=== PATIENT | female | born 1975 | race Caucasian/White ===

== ENCOUNTER 2018-05-14 18:06 | Emergency (ER) | payer OTHER ==
[~2018-05-14] VITALS: Ht 154.9 cm; Wt 67.1 kg
[2018-05-14] MEDS ORDERED: PROZAC20 MG PO (18:13)
[2018-05-14] MEDS ORDERED: BENADRYL25 MG PO (18:13)
[2018-05-14 18:51] LABS: URINE BILIRUBIN NEGATIVE (Negative); URINE BLOOD NEGATIVE (Negative); URINE CLARITY CLEAR; URINE COLOR YELLOW; URINE GLUCOSE-RANDOM NEGATIVE (Negative); URINE KETONES NEGATIVE (Negative); URINE LEUKOCYTES NEGATIVE (Negative); URINE NITRITE NEGATIVE (Negative); URINE PROTEIN NEGATIVE (Negative); URINE SPECIFIC GRAVITY 1.025 (1.005-1.030); URINE UROBILINOGEN 0.2 E.U./dl (0.2-1.0)
[2018-05-14 19:11] LABS: ABSOLUTE BASOPHILS 0.2 thou/uL (0.0-0.2); ABSOLUTE EOSINOPHILS 0.3 thou/uL (0.0-0.7); ABSOLUTE LYMPHOCYTES 2.9 thou/uL (0.8-5.3); ABSOLUTE MONOCYTES 1.5 thou/uL (0.0-1.2); ABSOLUTE NEUTROPHILS 12.5 thou/uL (1.6-8.1); BASOPHILS 1.1 %; EOSINOPHILS 1.8 %; HEMATOCRIT 38.9 % (37.0-47.0); HEMOGLOBIN 13.4 gm/dL (12.0-15.0); LYMPHOCYTES 16.6 %; MCH 28.9 pg (26.0-34.0); MCHC 34.4 g/dL (28.0-37.0); MCV 84.2 fL (80.0-100.0); MONOCYTES 8.4 %; MPV 9.2 fl. (7.2-11.1); NUCLEATED RBCS 0 /100WBC; PLATELET COUNT* 554 thou/uL (150-400); POLYS 72.1 %; RBC 4.62 mil/uL (4.20-5.00); RDW-CV 13.8 % (10.5-14.5); WBC 17.4 thou/uL (4.0-11.0)
[2018-05-14 19:19] LABS: CALCIUM 9.4 mg/dL (8.5-10.1); CREATININE 0.8 mg/dL (0.6-1.3); POTASSIUM 3.9 mmol/L (3.5-5.1)
[2018-05-14 19:23] LABS: ALBUMIN 4.1 g/dL (3.4-5.0); TOTAL BILIRUBIN 0.5 mg/dL (<0.1-1.0); TOTAL PROTEIN 8.2 g/dL (6.4-8.2)
[2018-05-14] MEDS ORDERED: CARAFATE 1 GM TA1 G1 PO (20:29)
[2018-05-14] MEDS ORDERED: PRILOSEC 20 MG20 MG PO (20:29)
[2018-05-14 20:48] VITALS: BP 100/80
== END 2018-05-14 20:49 | disposition home or self-care (01) ==
LOC: M.ERS 18:06
PROVIDERS: Physician Assistant
DX: R10.13 Epigastric pain (principal); R11.2 Nausea with vomiting, unspecified; D72.829 Elevated white blood cell count, unspecified; Z90.49 Acquired absence of other specified parts of digestive tract

== ENCOUNTER 2018-06-07 09:03 | Emergency (ER) | payer OTHER ==
[~2018-06-07] VITALS: Ht 154.9 cm; Wt 67.1 kg
[~2018-06-07 09:03] MED LIST: BENADRYL25 MG PO; CARAFATE 1 GM TA1 G1 PO; PRILOSEC 20 MG20 MG PO; PROZAC20 MG PO
[2018-06-07 10:52] VITALS: BP 123/67
== END 2018-06-07 10:52 | disposition home or self-care (01) ==
LOC: M.ERS 09:03
DX: R51 Headache (principal); F17.210 Nicotine dependence, cigarettes, uncomplicated; Z90.49 Acquired absence of other specified parts of digestive tract

== ENCOUNTER 2018-08-12 16:44 | Inpatient (IN) | payer OTHER ==
[~2018-08-12] VITALS: Ht 154.9 cm; Wt 73.0 kg
[2018-08-12 17:02] VITALS: BP 127/80
[2018-08-12] MEDS ORDERED: PROZAC10 MG PO (17:04)
[2018-08-12] MEDS ORDERED: TYLENOL EXTRA500 MG PO (17:04)
[2018-08-12] MEDS ORDERED: TRAZODONE HCL50 MG PO (17:04)
[2018-08-12 17:41] LABS: ABSOLUTE BASOPHILS 0.1 thou/uL (0.0-0.2); ABSOLUTE EOSINOPHILS 0.7 thou/uL (0.0-0.7); ABSOLUTE LYMPHOCYTES 2.1 thou/uL (0.8-5.3); ABSOLUTE MONOCYTES 1.3 thou/uL (0.0-1.2); ABSOLUTE NEUTROPHILS 13.4 thou/uL (1.6-8.1); BASOPHILS 0.8 %; EOSINOPHILS 3.8 %; HEMATOCRIT 37.3 % (37.0-47.0); HEMOGLOBIN 12.9 gm/dL (12.0-15.0); LYMPHOCYTES 12.1 %; MCH 29.2 pg (26.0-34.0); MCHC 34.6 g/dL (28.0-37.0); MCV 84.4 fL (80.0-100.0); MONOCYTES 7.5 %; MPV 8.5 fl. (7.2-11.1); NUCLEATED RBCS 0 /100WBC; PLATELET COUNT* 544 thou/uL (150-400); POLYS 75.8 %; RBC 4.42 mil/uL (4.20-5.00); RDW-CV 13.6 % (10.5-14.5); WBC 17.7 thou/uL (4.0-11.0)
[2018-08-12 17:49] LABS: ANION GAP 5 mmol/L (7-16); BUN 13 mg/dL (7-18); CALCIUM 8.3 mg/dL (8.5-10.1); CHLORIDE 102 mmol/L (98-107); CO2 29 mmol/L (21-32); CREATININE 0.5 mg/dL (0.6-1.3); GLUCOSE 101 mg/dL (70-99); POTASSIUM 4.1 mmol/L (3.5-5.1); SODIUM 136 mmol/L (136-145)
[2018-08-12 18:00] LABS: ALBUMIN 3.5 g/dL (3.4-5.0); ALKALINE PHOSPHATASE 76 U/L (46-116); NT-PRO BRAIN NAT PEPTIDE 495 pg/mL (<300); SGOT 55 U/L (15-37); SGPT 102 U/L (30-65); TOTAL BILIRUBIN 0.5 mg/dL (<0.1-1.0); TOTAL PROTEIN 7.1 g/dL (6.4-8.2); TROPONIN-I LEVEL <0.06 ng/mL (<0.06)
[2018-08-12 18:05] LABS: BE 2.5 mmol/L (-2 to +3); PCO2 46.7 mmHg (35.0-45.0); PO2 65.1 mmHg (75.0-100.0); pH 7.396 (7.340-7.450)
[2018-08-12 18:32] LABS: INFLUENZA A ANTIGEN None Detected (None Detect); INFLUENZA B ANTIGEN None Detected (None Detect)
[2018-08-12 20:46] VITALS: BP 122/80
[2018-08-12 21:15] VITALS: BP 124/69
[2018-08-12] MEDS ORDERED: BENADRYL25 MG PO (21:25)
[2018-08-12 22:14] LABS: AMP/METHAMP Negative (Negative); BARBITURATES Negative (Negative); BENZODIAZEPINES Negative (Negative); COCAINE Negative (Negative); METHADONE Negative (Negative); OPIATES Negative (Negative); PCP Negative (Negative); THC Negative (Negative)
[2018-08-13] VITALS: BP 127/55
[2018-08-13 04:00] VITALS: BP 104/60
[2018-08-13 05:24] LABS: HEMATOCRIT 35.3 % (37.0-47.0); MCH 29.1 pg (26.0-34.0); MCHC 34.1 g/dL (28.0-37.0); MCV 85.2 fL (80.0-100.0); MPV 8.9 fl. (7.2-11.1); NUCLEATED RBCS 0 /100WBC; PLATELET COUNT* 542 thou/uL (150-400); RBC 4.14 mil/uL (4.20-5.00); RDW-CV 13.4 % (10.5-14.5); WBC 15.6 thou/uL (4.0-11.0)
[2018-08-13 05:25] LABS: ALBUMIN 3.2 g/dL (3.4-5.0); CALCIUM 7.8 mg/dL (8.5-10.1); CREATININE 0.6 mg/dL (0.6-1.3); POTASSIUM 4.6 mmol/L (3.5-5.1); TOTAL BILIRUBIN 0.3 mg/dL (<0.1-1.0); TOTAL PROTEIN 6.3 g/dL (6.4-8.2)
[2018-08-13 05:52] LABS: ABSOLUTE LYMPHOCYTES 0.8 thou/uL (0.8-5.3); ABSOLUTE NEUTROPHILS 14.8 thou/uL (1.6-8.1); ANISOCYTOSIS 1+; PLATELET ESTIMATE INCREASED; POIKILOCYTOSIS 1+
[2018-08-13 08:08] VITALS: BP 118/72
[2018-08-13 12:00] VITALS: BP 136/73
[2018-08-13 12:50] LABS: URINE BILIRUBIN NEGATIVE (Negative); URINE BLOOD NEGATIVE (Negative); URINE CLARITY CLEAR; URINE COLOR YELLOW; URINE GLUCOSE-RANDOM TRACE (Negative); URINE KETONES NEGATIVE (Negative); URINE LEUKOCYTES-REFLEX NEGATIVE (Negative); URINE NITRITE-REFLEX NEGATIVE (Negative); URINE PROTEIN NEGATIVE (Negative); URINE UROBILINOGEN 0.2 E.U./dl (0.2-1.0)
--- NOTE | 2018-08-13 14:52 | EKG ---
[place] [address] ELECTROCARDIOGRAM REPORT Name: ALESHA GILES Room: [place] [address] ADM IN [facility]#: [id number] Admission: 08/12/18 Attend Phys: Donell Gaspar MD Discharge: Date of : 71 Report #: [id number] THIS REPORT FOR: //name// [facility] ED Test Date: 2018-08-12 Test Time: 17:52:52 Pat Name: ALESHA GILES Department: Room: [facility] Gender: F Warehouse Supervisor: Jayden ACEVEDO : 1975 Requested By: Eryn Delacruz Order Number: [id number] MD: Moe Lucero Measurements Intervals [place] Rate: 83 P: 62 NM: 121 QRS: -19 QRSD: 84 T: 49 QT: 373 QTc: 439 Interpretive Statements Sinus rhythm late transition Borderline left axis deviation Borderline low voltage, extremity leads No previous ECG available for comparison Electronically Signed On 08-13-2018 14:52:25 CDT by Moe Lucero [email or web address] <ELECTRONICALLY SIGNED> By: Moe Lucero MD, [facility] 08/13/18 [id number] 51 Moe Lucero MD, [facility] /EPI
[2018-08-13 15:50] VITALS: BP 133/79
[2018-08-13 20:00] VITALS: BP 127/82
[2018-08-14] VITALS: BP 104/62
[2018-08-14 04:00] VITALS: BP 127/83
[2018-08-14 05:48] LABS: HEMOGLOBIN 11.7 gm/dL (12.0-15.0); MCH 29.3 pg (26.0-34.0); MCHC 33.5 g/dL (28.0-37.0); MCV 87.5 fL (80.0-100.0); MPV 9.5 fl. (7.2-11.1); NUCLEATED RBCS 0 /100WBC; PLATELET COUNT* 486 thou/uL (150-400); RDW-CV 13.7 % (10.5-14.5); WBC 27.2 thou/uL (4.0-11.0)
[2018-08-14 05:55] LABS: ALBUMIN 3.2 g/dL (3.4-5.0); CALCIUM 7.7 mg/dL (8.5-10.1); CREATININE 0.5 mg/dL (0.6-1.3); POTASSIUM 4.3 mmol/L (3.5-5.1); TOTAL BILIRUBIN 0.4 mg/dL (<0.1-1.0); TOTAL PROTEIN 6.6 g/dL (6.4-8.2)
[2018-08-14 06:11] LABS: ABSOLUTE LYMPHOCYTES 2.7 thou/uL (0.8-5.3); ABSOLUTE MONOCYTES 1.1 thou/uL (0.0-1.2); ABSOLUTE NEUTROPHILS 23.4 thou/uL (1.6-8.1); ANISOCYTOSIS 1+; PLATELET ESTIMATE INCREASED; POIKILOCYTOSIS 1+
[2018-08-14 07:52] VITALS: BP 110/69
[2018-08-14 11:56] VITALS: BP 138/85
[2018-08-14 15:41] VITALS: BP 136/73
[2018-08-14 20:00] VITALS: BP 132/67
[2018-08-15] VITALS: BP 106/60
[2018-08-15 04:00] VITALS: BP 154/70
[2018-08-15 08:00] VITALS: BP 132/63
[2018-08-15 09:47] LABS: ABSOLUTE BASOPHILS 0.1 thou/uL (0.0-0.2); ABSOLUTE LYMPHOCYTES 2.4 thou/uL (0.8-5.3); ABSOLUTE MONOCYTES 1.7 thou/uL (0.0-1.2); ABSOLUTE NEUTROPHILS 18.7 thou/uL (1.6-8.1); BASOPHILS 0.5 %; EOSINOPHILS 0.2 %; HEMOGLOBIN 11.7 gm/dL (12.0-15.0); LYMPHOCYTES 10.6 %; MCH 28.4 pg (26.0-34.0); MCHC 32.6 g/dL (28.0-37.0); MCV 87.1 fL (80.0-100.0); MONOCYTES 7.2 %; MPV 10.1 fl. (7.2-11.1); NUCLEATED RBCS 0 /100WBC; PLATELET COUNT* 452 thou/uL (150-400); POLYS 81.5 %; RBC 4.14 mil/uL (4.20-5.00); RDW-CV 14.3 % (10.5-14.5)
[2018-08-15 09:55] LABS: ALBUMIN 3.2 g/dL (3.4-5.0); CALCIUM 7.6 mg/dL (8.5-10.1); CREATININE 0.6 mg/dL (0.6-1.3); POTASSIUM 3.8 mmol/L (3.5-5.1); TOTAL BILIRUBIN 0.5 mg/dL (<0.1-1.0); TOTAL PROTEIN 6.4 g/dL (6.4-8.2)
[2018-08-15 13:01] VITALS: BP 114/67
[2018-08-15 17:23] VITALS: BP 130/81
[2018-08-15 20:00] VITALS: BP 104/62
[2018-08-16] VITALS: BP 96/54
[2018-08-16 04:00] VITALS: BP 90/56
[2018-08-16 05:15] LABS: ABSOLUTE BASOPHILS 0.1 thou/uL (0.0-0.2); ABSOLUTE EOSINOPHILS 0.1 thou/uL (0.0-0.7); ABSOLUTE LYMPHOCYTES 6.1 thou/uL (0.8-5.3); ABSOLUTE MONOCYTES 1.6 thou/uL (0.0-1.2); ABSOLUTE NEUTROPHILS 10.1 thou/uL (1.6-8.1); BASOPHILS 0.7 %; EOSINOPHILS 0.5 %; HEMATOCRIT 34.2 % (37.0-47.0); HEMOGLOBIN 11.7 gm/dL (12.0-15.0); LYMPHOCYTES 33.9 %; MCH 29.1 pg (26.0-34.0); MCHC 34.2 g/dL (28.0-37.0); MCV 85.1 fL (80.0-100.0); MONOCYTES 9.1 %; MPV 9.6 fl. (7.2-11.1); NUCLEATED RBCS 0 /100WBC; PLATELET COUNT* 495 thou/uL (150-400); POLYS 55.8 %; RBC 4.02 mil/uL (4.20-5.00); RDW-CV 13.6 % (10.5-14.5); WBC 18.1 thou/uL (4.0-11.0)
[2018-08-16 05:40] LABS: CREATININE 0.6 mg/dL (0.6-1.3); POTASSIUM 3.8 mmol/L (3.5-5.1)
[2018-08-16 08:11] VITALS: BP 168/87
[2018-08-16 10:55] VITALS: BP 168/87
[2018-08-16] MEDS ORDERED: AUGMENTIN 875-1 EACH PO (11:09)
[2018-08-16] MEDS ORDERED: PRILOSEC 20 MG20 MG PO (11:10)
[2018-08-16] MEDS ORDERED: PREDNISONE 10 M10 MG PO (11:13)
== END 2018-08-16 11:35 | disposition home or self-care (01) | DRG 193 ==
LOC: M.ERS 16:44 → M.TBA-ER 18:25 → M.2W 18:25
PROVIDERS: Nurse Practitioner Family; ADMIT Internal Medicine
DX: J18.9 Pneumonia, unspecified organism (principal); J96.01 Acute respiratory failure with hypoxia; R65.10 Systemic inflammatory response syndrome (SIRS) of non-infectious origin without acute organ dysfunction; J44.0 Chronic obstructive pulmonary disease with (acute) lower respiratory infection; F17.210 Nicotine dependence, cigarettes, uncomplicated; G43.009 Migraine without aura, not intractable, without status migrainosus; Z90.49 Acquired absence of other specified parts of digestive tract; Z79.899 Other long term (current) drug therapy; Z90.81 Acquired absence of spleen

== ENCOUNTER 2018-09-05 16:10 | Emergency (ER) | payer OTHER ==
[~2018-09-05] VITALS: Ht 154.9 cm; Wt 73.9 kg
[~2018-09-05 16:10] MED LIST changes: +AUGMENTIN 875-1 EACH PO; +PREDNISONE 10 M10 MG PO; +PROZAC10 MG PO; +TRAZODONE HCL50 MG PO; +TYLENOL EXTRA500 MG PO
[2018-09-05 16:37] LABS: ABSOLUTE EOSINOPHILS 0.9 thou/uL (0.0-0.7); ABSOLUTE MONOCYTES 1.3 thou/uL (0.0-1.2); ABSOLUTE NEUTROPHILS 7.6 thou/uL (1.6-8.1); BASOPHILS 0.2 %; EOSINOPHILS 6.2 %; HEMATOCRIT 35.3 % (37.0-47.0); HEMOGLOBIN 12.1 gm/dL (12.0-15.0); LYMPHOCYTES 28.7 %; MCH 29.3 pg (26.0-34.0); MCHC 34.3 g/dL (28.0-37.0); MCV 85.4 fL (80.0-100.0); MONOCYTES 9.5 %; MPV 8.9 fl. (7.2-11.1); NUCLEATED RBCS 0 /100WBC; PLATELET COUNT* 552 thou/uL (150-400); POLYS 55.4 %; RBC 4.14 mil/uL (4.20-5.00); RDW-CV 13.7 % (10.5-14.5); WBC 13.8 thou/uL (4.0-11.0)
[2018-09-05 16:45] LABS: ANION GAP 3 mmol/L (7-16); BUN 17 mg/dL (7-18); CALCIUM 8.7 mg/dL (8.5-10.1); CHLORIDE 107 mmol/L (98-107); CO2 29 mmol/L (21-32); CREATININE 0.8 mg/dL (0.6-1.3); GLUCOSE 97 mg/dL (70-99); SODIUM 139 mmol/L (136-145)
[2018-09-05 16:52] LABS: ALBUMIN 3.3 g/dL (3.4-5.0); ALKALINE PHOSPHATASE 60 U/L (46-116); SGOT 9 U/L (15-37); SGPT 25 U/L (30-65); TOTAL BILIRUBIN 0.3 mg/dL (<0.1-1.0); TOTAL PROTEIN 6.7 g/dL (6.4-8.2); TROPONIN-I LEVEL <0.06 ng/mL (<0.06)
[2018-09-05] MEDS ORDERED: PREDNISONE 20 M20 MG PO (17:20)
[2018-09-05 17:30] VITALS: BP 113/63
--- NOTE | 2018-09-06 11:37 | EKG ---
[place] [address] ELECTROCARDIOGRAM REPORT Name: ALESHA GILES Room: [facility]#: [id number] Admission: 09/05/18 Attend Phys: Discharge: 09/05/18 Date of : 71 Report #: [id number] THIS REPORT FOR: //name// [facility] ED Test Date: 2018-09-05 Test Time: 16:17:15 Pat Name: ALESHA GILES Department: Room: Gender: F [employer] Overhauler: Irena Ralph : 1975 Requested By: Tara Mccullough Order Number: [id number] Reading MD: Tiburcio Ramos Measurements Intervals [place] Rate: 73 P: 78 MA: 121 QRS: -23 QRSD: 86 T: 43 QT: 383 QTc: 422 Interpretive Statements Sinus rhythm Borderline left axis deviation Compared to ECG 08/12/2018 17:52:52 No significant changes Electronically Signed On 09-06-2018 11:37:00 CDT by Tiburcio Ramos [email or web address] <ELECTRONICALLY SIGNED> By: Tiburcio Ramos MD, [facility] 09/06/18 1137 [id number] 16 Tiburcio Ramos MD, [facility] /EPI
== END 2018-09-05 17:52 | disposition home or self-care (01) ==
LOC: M.ERS 16:10
PROVIDERS: Nurse Practitioner Family
DX: R07.89 Other chest pain (principal); G43.909 Migraine, unspecified, not intractable, without status migrainosus; K74.60 Unspecified cirrhosis of liver; Z90.49 Acquired absence of other specified parts of digestive tract; Z88.6 Allergy status to analgesic agent; Z88.8 Allergy status to other drugs, medicaments and biological substances

== ENCOUNTER 2018-10-19 12:12 | Emergency (ER) | payer OTHER ==
[~2018-10-19] VITALS: Ht 154.9 cm; Wt 72.6 kg
[~2018-10-19 12:12] MED LIST changes: +PREDNISONE 20 M20 MG PO
[2018-10-19 13:14] LABS: URINE BILIRUBIN NEGATIVE (Negative); URINE BLOOD NEGATIVE (Negative); URINE CLARITY CLEAR; URINE COLOR YELLOW; URINE GLUCOSE-RANDOM NEGATIVE (Negative); URINE KETONES NEGATIVE (Negative); URINE LEUKOCYTES-REFLEX NEGATIVE (Negative); URINE NITRITE-REFLEX NEGATIVE (Negative); URINE PROTEIN NEGATIVE (Negative); URINE SPECIFIC GRAVITY >= 1.030 (1.005-1.030); URINE UROBILINOGEN 0.2 E.U./dl (0.2-1.0)
[2018-10-19 13:23] LABS: AMP/METHAMP POSITIVE (Negative); BARBITURATES Negative (Negative); BENZODIAZEPINES Negative (Negative); COCAINE Negative (Negative); METHADONE Negative (Negative); OPIATES Negative (Negative); PCP Negative (Negative); THC Negative (Negative)
[2018-10-19 13:30] LABS: HEMATOCRIT 40.6 % (37.0-47.0); HEMOGLOBIN 13.6 gm/dL (12.0-15.0); MCH 28.4 pg (26.0-34.0); MCHC 33.4 g/dL (28.0-37.0); MCV 84.8 fL (80.0-100.0); MPV 9.2 fl. (7.2-11.1); NUCLEATED RBCS 0 /100WBC; PLATELET COUNT* 672 thou/uL (150-400); RBC 4.79 mil/uL (4.20-5.00); RDW-CV 13.7 % (10.5-14.5); WBC 16.7 thou/uL (4.0-11.0)
[2018-10-19 13:39] LABS: CALCIUM 8.6 mg/dL (8.5-10.1); CREATININE 0.7 mg/dL (0.6-1.3); POTASSIUM 4.3 mmol/L (3.5-5.1)
[2018-10-19 13:43] LABS: ALBUMIN 3.8 g/dL (3.4-5.0); TOTAL BILIRUBIN 0.3 mg/dL (<0.1-1.0); TOTAL PROTEIN 7.7 g/dL (6.4-8.2)
[2018-10-19 13:52] LABS: SALICYLATE < 2.8 mg/dL (2.8-20.0)
[2018-10-19 13:55] LABS: ABSOLUTE EOSINOPHILS 2.5 thou/uL (0.0-0.7); ABSOLUTE LYMPHOCYTES 3.2 thou/uL (0.8-5.3); ABSOLUTE MONOCYTES 1.7 thou/uL (0.0-1.2); ABSOLUTE NEUTROPHILS 9.4 thou/uL (1.6-8.1); PLATELET ESTIMATE ADEQUATE
[2018-10-19 13:56] LABS: ACETAMINOPHEN < 2 ug/mL (10-30); ALCOHOL < 10 mg/dL (<10)
[2018-10-19 16:31] VITALS: BP 137/87
== END 2018-10-19 16:32 | disposition home or self-care (01) ==
LOC: M.ERS 12:12
PROVIDERS: Emergency Medicine Emergency Medical Services
DX: R51 Headache (principal); F32.9 Major depressive disorder, single episode, unspecified; J02.9 Acute pharyngitis, unspecified; Z90.49 Acquired absence of other specified parts of digestive tract; F41.9 Anxiety disorder, unspecified; F17.210 Nicotine dependence, cigarettes, uncomplicated; Z88.6 Allergy status to analgesic agent

== ENCOUNTER 2019-09-11 14:40 | Emergency (ER) | payer MEDICAID ==
[~2019-09-11] VITALS: Ht 157.5 cm; Wt 90.7 kg
[2019-09-11] MEDS ORDERED: PHENERGAN 25 MG25 M1 PO ×2 (15:00→15:02)
[2019-09-11 16:05] VITALS: BP 131/62
== END 2019-09-11 16:07 | disposition home or self-care (01) ==
LOC: M.ERS 14:40
DX: G43.009 Migraine without aura, not intractable, without status migrainosus (principal); R11.2 Nausea with vomiting, unspecified

== ENCOUNTER 2020-01-29 10:59 | Emergency (ER) | payer MEDICAID ==
[~2020-01-29] VITALS: Ht 154.9 cm; Wt 90.7 kg
[~2020-01-29 10:59] MED LIST changes: +PHENERGAN 25 MG25 M1 PO
[2020-01-29] MEDS ORDERED: PROZAC10 M1 PO (11:06)
[2020-01-29] MEDS ORDERED: SEROQUEL200 MG PO (11:07)
[2020-01-29] MEDS ORDERED: TRAMADOL 50 MG50 MG PO (11:23)
[2020-01-29] MEDS ORDERED: AMOXICILLIN 50500 MG PO (11:23)
[2020-01-29 11:39] VITALS: BP 145/79
== END 2020-01-29 11:39 | disposition home or self-care (01) ==
LOC: M.ERS 10:59
DX: K02.9 Dental caries, unspecified (principal); G43.909 Migraine, unspecified, not intractable, without status migrainosus; Z90.49 Acquired absence of other specified parts of digestive tract; Z98.51 Tubal ligation status; Z88.6 Allergy status to analgesic agent; Z88.8 Allergy status to other drugs, medicaments and biological substances